=== PATIENT | female | born 1990 | race Caucasian/White ===

== ENCOUNTER 2024-01-19 09:09 | Outpatient (CLI) | payer OTHER | END 2024-01-19 10:06 | disposition home or self-care (01) | LOC: NST 09:09 | PROVIDERS: ATTEND Obstetrics & Gynecology Gynecology | DX: Z34.83 Encounter for supervision of other normal pregnancy, third trimester (principal); Z3A.33 33 weeks gestation of pregnancy ==

== ENCOUNTER 2024-02-12 10:28 | Outpatient (CLI) | payer OTHER | END 2024-02-12 11:40 | disposition home or self-care (01) | LOC: NST 10:28 | PROVIDERS: ATTEND Obstetrics & Gynecology Maternal & Fetal Medicine | DX: Z34.83 Encounter for supervision of other normal pregnancy, third trimester (principal) ==

== ENCOUNTER 2024-02-19 08:53 | Inpatient (IN) | payer OTHER ==
[~2024-02-19] VITALS: Ht 160 cm; Wt 72.6 kg
[2024-02-19] MEDS ORDERED: AMPICILLIN SODIUM 2,000 MG VIAL IV ONE (09:30)
[2024-02-19] MEDS ORDERED: RINGERS SOLUTION,LACTATED 1,000 ML IV SCH (09:30)
[2024-02-19] MEDS ORDERED: OXYTOCIN 20 UNITS/500ML RL PIGGYBAG IV ONE (09:35)
[2024-02-19 09:43] LABS: HEMATOCRIT 37.6 % (36.0-45.00); HEMOGLOBIN 12.4 g/dL (12.0-15.00); MEAN CELL VOLUME 81.8 fL (80.00-100.00); PLATELET COUNT 190 K/uL (150-450); RED CELL DISTRIBUTION WIDTH 15.9 % (11.5-14.5)
[2024-02-19] MEDS ORDERED: PRENATAL TABLE1 EAC1 PO (09:43)
[2024-02-19] MEDS ORDERED: ADULT LOW DOSE81 M1 PO (09:44)
[2024-02-19] MEDS ORDERED: OXYTOCIN 500 ML IV SCH (09:45)
[2024-02-19 10:23] LABS: INR < 0.93; PARTIAL THROMBOPLASTIN TIME 28.5 SECONDS (22.0-34.0)
[2024-02-19 10:27] LABS: PROTHROMBIN TIME 9.4 SECONDS (9.0-11.5)
[2024-02-19] MEDS ORDERED: AMPICILLIN SODIUM 1,000 MG VIAL IV SCH (13:00)
[2024-02-19] MEDS ORDERED: MORPHINE SULFATE 4 MG/ML CARTRIDGE IV ONE (13:00)
[2024-02-19] MEDS ORDERED: LIDOCAINE HCL 1% 200MG/20ML VIAL IJ ONE ×2 (13:45→15:00)
[2024-02-19] MEDS ORDERED: ERYTHROMYCIN BASE 1 GM TUBE OP ONE ×2 (13:45→15:00)
[2024-02-19] MEDS ORDERED: OXYTOCIN 20 UNITS/1000ML RL PIGGYBAG IV ONE (13:45)
[2024-02-19] MEDS ORDERED: CHLORHEXIDINE GLUCONATE 120 ML BOTTLE TOP ONE ×2 (13:45→15:00)
[2024-02-19] MEDS ORDERED: OxyCODONE HCL/APAP UD (PERCOCET) PO PRN (14:30)
[2024-02-19] MEDS ORDERED: OXYTOCIN 1,000 ML IV SCH (14:30)
[2024-02-19] MEDS ORDERED: IBUprofen 400 MG TABLET PO PRN (14:30)
== END 2024-02-21 10:46 | disposition home or self-care (01) | DRG 807 ==
LOC: OB/GYN 08:53 → LDR 08:53 → OB/GYN 15:25
PROVIDERS: ADMIT Obstetrics & Gynecology; ATTEND Obstetrics & Gynecology
PROC: 10E0XZZ Delivery of Products of Conception, External Approach (ICD-10-PCS; principal; 2024-02-19)
PROC: 0HQ9XZZ Repair Perineum Skin, External Approach (ICD-10-PCS; 2024-02-19)
PROC: 4A1HXCZ Monitoring of Products of Conception, Cardiac Rate, External Approach (ICD-10-PCS; 2024-02-19)
DX: O70.0 First degree perineal laceration during delivery (principal); Z37.0 Single live birth; Z3A.39 39 weeks gestation of pregnancy; Z20.822 Contact with and (suspected) exposure to COVID-19